=== PATIENT | male | born 1960 | race Caucasian/White ===

== ENCOUNTER 2017-03-11 15:29 | Emergency (ER) | payer OTHER ==
[2017-03-11 15:42] VITALS: PULSE 88
[2017-03-11] MEDS ORDERED: Sodium Chloride 0.9% 1,000 ML IV STA (16:33)
--- NOTE | 2017-03-11 16:45 | ED PDOC ---
Syncope/Near Syncope/Dizziness History Per: Patient History/Exam Limitations: no limitations Onset/Duration Of Symptoms: Mins (just [employer]) Current Symptoms Are (Timing): Gone Now Activity At Onset Of Symptoms: Had Just Stood up Associated Symptoms Preceding Syncopal Episode: Lightheadedness, Vertigo Seizure Or Post-ictal Symptoms: None Possible Causative Factor(s): Other (diarrhea, restarting Lisinopril) Fall Associated With With Symptoms: Yes Severity: Mild Additional History Per: Patient, Family Additional Complaint(s): 56 y/o male who is here following an episode of witnessed syncope just [employer]. He reports that he was sitting at a table when he suddenly felt lightheaded, dizzy , flushed, and was seeing dark spots in his vision. Patient felt that he should go to the restroom, stood up, and then lost consciousness. He reports some posterior head pain that is mild, but otherwise feels well. Per family, patient was unconscious for a few seconds, did strike his posterior head, but denies any seizure activity. Patient reports that he had some diarrhea this morning and was not feeling well. They walked 10 minutes to the restaurant. Also, patient restarted Lisinopril today, after one week of noncompliance, and did not check his blood pressure. No other complaints at this time. <Andrea Osman A - Last Filed: 03/11/17 16:59> <Brunilda Walker Y - Last Filed: 03/11/17 17:04> Time Seen by Provider: 03/11/17 15:54 Chief Complaint (Nursing): Syncope Past Medical History Vital Signs: Last Vital Signs Temp 97.6 F 03/11/17 15:37 Pulse 88 03/11/17 15:37 Resp 16 03/11/17 15:37 BP 102/61 03/11/17 15:37 Pulse Ox 98 03/11/17 15:37 - Medical History PMH: Bronchitis, COPD (borderline), Depression, HTN, Hypercholesterolemia - Surgical History Surgical History: No Surg Hx - Family History Family History: States: Unknown Family Hx - Social History Current smoker - smoking cessation education provided: No - Immunization History Hx Tetanus Toxoid Vaccination: No Hx Influenza Vaccination: No Hx Pneumococcal Vaccination: No <Andrea Osman A - Last Filed: 03/11/17 16:59> Vital Signs: Last Vital Signs Temp 97.6 F 03/11/17 15:37 Pulse 88 03/11/17 15:37 Resp 16 03/11/17 15:37 BP 102/61 03/11/17 15:37 Pulse Ox 98 03/11/17 17:00 <Brunilda Walker Y - Last Filed: 03/11/17 17:04> - Allergies Allergies/Adverse Reactions: Allergies Allergy/AdvReac Type Severity Reaction Status Date / Time No Known Allergies Allergy Verified 03/11/17 15:37 Review of Systems ROS Statement: Except As Marked, All Systems Reviewed And Found Negative Neurological: Positive for: Headache, Other (syncope) <JacquiMadhavraul A - Last Filed: 03/11/17 16:59> Physical Exam - Reviewed Nursing Documentation Reviewed: Yes Vital Signs Reviewed: Yes - Physical Exam Appears: Positive for: Well, Non-toxic, No Acute Distress Head Exam: Positive for: ATRAUMATIC Skin: Positive for: Normal Color, Warm, Dry. Negative for: Diaphoresis Eye Exam: Positive for: Normal appearance, EOMI, PERRL ENT: Positive for: Normal ENT Inspection Neck: Positive for: Normal, Painless ROM, Supple Cardiovascular/Chest: Positive for: Regular Rate, Rhythm. Negative for: Gallop , Murmur, Friction Rub Respiratory: Positive for: Normal Breath Sounds. Negative for: Rhonchi, Wheezing, Respiratory Distress Gastrointestinal/Abdominal: Positive for: Normal Exam, Bowel Sounds, Soft. Negative for: Tenderness, Guarding, Rebound Back: Positive for: Normal Inspection Extremity: Positive for: Normal ROM Neurologic/Psych: Positive for: Alert, orchestrator II-XII, Oriented. Negative for: Motor/Sensory Deficits <JacquiMaximinojena A - Last Filed: 03/11/17 16:59> - ECG ECG: Positive for: Interpreted By Me, Viewed By Me Interpretation Of ECG: Rate [address] elevation or changes. O2 Sat by Pulse Oximetry: 98 (RA) Pulse Ox Interpretation: Normal <JacquiMaximinojena A - Last Filed: 03/11/17 16:59> Medical Decision Making Medical Decision Making: Initial Impression: syncope DDx: Arrythmia, vasovagal syndrome, orthostatic syncope due to dehydration and/ or Lisinopril. Head Injury r/o ICH. Initial Plan: - EKG - Labs - CT Head - IVF Scribe Attestation: Documented by Karine Herrera acting as a scribe for Andrea Osman MD. Scribe Attestation: All medical record entries made by the Scribe were at my direction and personally dictated by me. I have reviewed the chart and agree that the record accurately reflects my personal performance of the history, physical exam, medical decision making, and the department course for this patient. I have also personally directed, reviewed, and agree with the discharge instructions and disposition. <Andrea Osman - Last Filed: 03/11/17 16:59> Disposition - Patient ED Disposition Is Patient to be Admitted: Transfer of Care Counseled Patient/Family Regarding: Studies Performed, Diagnosis - Disposition Disposition Time: 17:00 Patient Signed Over To: Brunilda Walker Handoff Comments: pending labs, CT head and final disposition <Andrea Osman A - Last Filed: 03/11/17 16:59> <Brunilda Walker - Last Filed: 03/11/17 17:04> - Clinical Impression Clinical Impression: Syncope, Head injury - Disposition Condition: FAIR
[2017-03-11 17:03] LABS: BASO % 0.2 % (0.0-2.0); EOS # 0.2 K/uL (0.0-0.7); EOS % 1.7 % (0.0-4.0); HEMATOCRIT 42.3 % (35.0-51.0); LYMPH % 8.2 % (20.0-40.0); MEAN CELL VOLUME 89.3 fl (80.0-94.0); MEAN CORPUSCULAR HEMOGLOBIN 28.7 pg (27.0-31.0); MEAN CORPUSCULAR HGB CONC 32.1 g/dL (33.0-37.0); MEAN PLATELET VOLUME 8.7 fl (7.2-11.7); MONO # 0.8 K/uL (0.0-0.8); MONO % 6.6 % (0.0-10.0); NEUT # 9.6 K/uL (1.8-7.0); NEUT % 83.3 % (50.0-75.0); NRBC % 0.1 % (0.0-0.0); PLATELET COUNT 146 K/uL (130-400); RED CELL DISTRIBUTION WIDTH 14.9 % (11.5-14.5); WHITE BLOOD COUNT 11.6 K/uL (4.8-10.8)
--- NOTE | 2017-03-11 17:10 | ED PDOC ---
- Laboratory Results Result Diagrams: 03/11/17 17:00 03/11/17 17:00 - ECG O2 Sat by Pulse Oximetry: 98 (RA) Pulse Ox Interpretation: Normal Medical Decision Making Medical Decision Making: Patient signed out to provider from Dr. Osman at 1700 pending results and discharge after reevaluation Dx: Syncope labs reviewed with patient Patient feels better and is ambulating and will be discharged home with family with instructions to follow up with outpatient. pt made aware of lab results. Scribe Attestation Documented by Dara Padilla acting as a scribe for Brunilda Walker MD. Provider Attestation: All medical record entries made by the Scribe were at my direction and personally dictated by me. I have reviewed the chart and agree that the record accurately reflects my personal performance of the history, physical exam, medical decision making, and the department course for this patient. I have also personally directed, reviewed, and agree with the discharge instructions and disposition. Disposition Counseled Patient/Family Regarding: Studies Performed, Diagnosis, Need For Followup - Clinical Impression Clinical Impression: Syncope, Head injury, Vasovagal syncope - POA Present On Arrival: None - Disposition Referrals: [facility] [Outside] [facility] [Outside] Disposition: Routine/Home Disposition Time: 17:30 Condition: IMPROVED Additional Instructions: follow up with your primary doctor in 1-2 days return to the ED with any worsening or concerning symptoms. Instructions: Syncope (ED)
[2017-03-11 17:14] LABS: BLOOD UREA NITROGEN 24 mg/dl (9-20); CALCIUM 8.9 mg/dL (8.4-10.2); CARBON DIOXIDE 22 mmol/L (22-30); CHLORIDE 106 mmol/L (98-107); GFR AFRICAN-AMERICAN > 60; GLUCOSE,RANDOM 119 mg/dL (75-110); POTASSIUM 4.7 MMOL/L (3.6-5.0); SODIUM 138 mmol/l (132-148)
--- NOTE | 2017-03-11 17:35 | CT ---
PROCEDURE: CT HEAD WITHOUT CONTRAST. HISTORY: head injury COMPARISON: None available. TECHNIQUE: Axial computed tomography images were obtained through the head/brain without intravenous contrast. Radiation dose: Total exam DLP = 849.64 mGy-cm. This CT exam was performed using one or more of the following dose reduction techniques: Automated exposure control, adjustment of the mA and/or kV according to patient size, and/or use of iterative reconstruction technique. FINDINGS: HEMORRHAGE: No intracranial hemorrhage. BRAIN: No mass effect or edema. The peterson-white matter differentiation appears intact.Please note that MRI with diffusion imaging is more sensitive in the detection of acute ischemic event. VENTRICLES: No hydrocephalus. CALVARIUM: Unremarkable. PARANASAL SINUSES: Unremarkable as visualized. No significant inflammatory changes. MASTOID AIR CELLS: Unremarkable as visualized. No inflammatory changes. OTHER FINDINGS: None. IMPRESSION: No acute intracranial pathology identified.
[2017-03-11 18:44] VITALS: BP 127/86; RESP 18; TEMP 98.2
[2017-03-11 18:49] LABS: EOSINOPHIL 1 % (0-7); NEUTROPHIL 83 % (42-75); TOTAL CELLS COUNTED 100
[2017-03-11 18:50] LABS: LARGE PLATELETS PRESENT
[2017-03-11 19:28] VITALS: O2SAT 98
--- NOTE | 2017-03-12 15:39 | CARD ---
APPROVED REPORT EKG Measurement Heart [id number] <Conclusion> Normal sinus rhythm with sinus arrhythmia Right bundle branch block Abnormal ECG
== END 2017-03-11 18:51 | disposition home or self-care (01) ==
LOC: H.ER 15:29
DX: R55 Syncope and collapse (principal); S09.90XA Unspecified injury of head, initial encounter; W19.XXXA Unspecified fall, initial encounter; Y92.89 Other specified places as the place of occurrence of the external cause
CPT/HCPCS: 70450; 80048; 82948; 84484; 85025; 93005; 96360; 99285; J7040